=== PATIENT | male | born 1945 | race Caucasian/White ===

== ENCOUNTER → 2022-07-17 07:38 | Outpatient (CLI) | payer MEDICARE, SELFPAY ==
--- NOTE | 2022-07-17 07:42 | DI.ECHO.S_ITS ---
[facility] +---------+ : : [address] : [place] : : : : [id number] : : : : Phone: [phone]---------+ Echocardiogram Report + + :Name: MARIANA SMITH Study Date: 07/17/2022 Height: 70.5 in: :[facility] ReadingLocation: Weight: 172 lb : : Gender: Male BSA: 2.0 m2 : :: 1945 Age: 77 yrs BP: 142/72 mmHg: :Reason For Study: ABNORMAL ELECTROCARDIOGRAM : :Ordering Physician: HEATHER FRIEDMAN : :E Performed By: Mary Castaneda : :Referring: HEATHER FRIEDMAN E : + + Interpretation Summary 1) Normal left ventricular thickness, size, wall motion, and systolic function (EF 60-65%). 2) Normal right ventricular size and function. 3) There is mild to moderate mitral regurgitation. 4) No prior Echo available for comparison. Procedure: A two-dimensional transthoracic echocardiogram with color flow and Doppler was performed. The study quality was technically adequate. There is no prior echocardiogram noted for this patient. The patient had occasional PVCs during the exam. The heart rate ranged between 53-61 bpm during the study. Left Ventricle: The left ventricle is normal in size and wall thickness. The ejection fraction is estimated to be 60-65%. Left ventricular systolic function appears normal without focal wall motion abnormalities. Diastolic parameters suggest probable normal left ventricular diastolic function and normal filling pressures. Right Ventricle: The right ventricle is normal in size and function. Atria: The left atrial size is normal. Right atrial size is normal. There is no Doppler evidence for an interatrial shunt. Mitral Valve: The mitral valve is normal in structure and function. There is mild to moderate mitral regurgitation. Aortic Valve: The aortic valve is trileaflet. The aortic valve opens well. There is no aortic valve stenosis. No aortic regurgitation is present. Tricuspid Valve: The tricuspid valve is normal in structure and function. The right ventricular systolic pressure is estimated to be at least 31 mmHg based on an estimated right atrial pressure of 8 mm Hg. There is mild tricuspid regurgitation. Pulmonic Valve: The pulmonic valve is not well visualized. There is mild pulmonic regurgitation. Great Vessels: The aortic root is normal size. The dimensions of the ascending aorta are normal. The IVC is dilated (diameter is greater than 2.1 cm) yet it collapses greater than 50% with a sniff. This suggests a right atrial pressure of 8 mm Hg. Pericardium/ Pleura There is no pericardial effusion. There is no pleural effusion. MMode/2D Measurements & Calculations LVIDd: 4.7 cm LVOT diam: 2.4 cm LVIDs: 2.9 cm Ao root diam: 3.6 cm FS: 38.2 % asc Aorta Diam: 3.5 cm IVSd: 0.76 cm Ao Arch Diam (Prox Trans): 2.8 cm LVPWd: 0.64 cm LV stearns. diameter/BSA (cm/m^2): 2.4 LV sys. diameter/BSA (cm/m^2): 1.5 LA A2 area: 17.5 cm2 RA long axis: 5.5 cm LA A4 area: 16.8 cm2 RA area: 17.2 cm2 LA length (vol): 4.6 cm RA vol: 45.2 ml LA vol: 54.4 ml RA : 23.0 ml/m2 LA vol index: 27.6 ml/m2 IVC diam: 2.3 cm RVD1 (basal): 3.9 cm RVD2 (mid): 3.0 cm TAPSE: 2.2 cm Doppler Measurements & Calculations Ao V2 max: 122.8 cm/sec LVOT Max Valdemar: 103.9 cm/sec Ao V2 mean: 89.7 cm/sec LV V1 max P.3 mmHg Ao max P.0 mmHg LV V1 VTI: 19.4 cm Ao mean P.5 mmHg SIMIN(I,D): 3.4 cm2 Ao V2 VTI: 27.0 cm SIMIN(V,D): 3.9 cm2 sev ratio: 0.72 SIMIN indexed to BSA (cm^2/m^2): 1.7 MV E max valdemar: 95.5 cm/sec TR max valdemar: 243.8 cm/sec MV A max valdemar: 84.3 cm/sec TR max P.8 mmHg MV E/A: 1.1 PA V2 max: 80.3 cm/sec Med Peak E' Valdemar: 6.6 cm/sec PA V2 mean: 54.7 cm/sec E/E' med: 14.6 PA mean P.4 mmHg Lat Peak E' Valdemar: 11.8 cm/sec PA pr(Accel): 32.8 mmHg E/E' lat: 8.1 E/e' average: 11.3 MV dec time: 0.15 sec SV(LVOT): 90.4 ml Reading Physician:[id number] PM
== END ==
PROVIDERS: PCP Family Medicine; Referring Provider Family Medicine; Visit Provider Family Medicine
DX: I08.1 Rheumatic disorders of both mitral and tricuspid valves (principal); R94.31 Abnormal electrocardiogram [ECG] [EKG]
CPT/HCPCS: 93306